=== PATIENT | male | born 1955 | race Caucasian/White ===

== ENCOUNTER 2017-05-07 10:30 | Observation (INO) | payer BC ==
[2017-05-07 13:58] LABS: Comments Flag Yes; Hematocrit 35 % (42-52); Hemoglobin 11.6 g/dl (14.0-18.0); Mean Corpuscular HGB Conc 33 g/dl (31-36); Mean Corpuscular Hemoglobin 32 pg (27-31); Mean Corpuscular Volume 97 fL (80-94); Mean Platelet Volume 8 um3 (7.4-10.4); Red Blood Count 3.61 10^6/ul (4.0-5.4); Red Cell Distribution Width 12 % (10.5-15)
[2017-05-07 13:59] LABS: White Blood Count 2.5 10^3/ul (3.5-10.8)
[2017-05-07] MEDS ORDERED: Acetaminophen TAB* 325 MG PO PRN (14:15)
[2017-05-07 14:45] LABS: BUN/Creatinine Ratio 6.8 (8-20); Calcium 7.9 mg/dL (8.6-10.3); EGFR African American 138.3 (>60); EGFR Non-African American 107.5 (>60); Globulin 2.9 g/dL (2-4); Potassium 4.1 mmol/L (3.5-5.0); Total Bilirubin 0.5 mg/dL (0.2-1.0); Total Protein 5.9 g/dL (6.4-8.9)
[2017-05-07] MEDS ORDERED: LORazepam TAB(*) 1 MG PO SCH (15:00)
[2017-05-07] MEDS: Albuterol/Ipratropium NEB.SOL* Albuterol 2.5 MG/Ipratropium 0.5 MG 3 ML INH SCH ×3 (15:44→23:35)
[2017-05-07 16:50] LABS: Troponin I 0.04 ng/mL (<0.04)
[2017-05-07] MEDS ORDERED: Nicotine Inhaler* 10 MG AMP INH PRN (17:01)
[2017-05-07] MEDS ORDERED: Mouth Piece, Nicotine* 1 EACH CARTRIDGE INH PRN (17:01)
[2017-05-07] MEDS: Nicotine PATCH 21 MG/24 HR* PATCH TRANSDERM SCH (17:18)
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
[2017-05-07] MEDS: Metoprolol Tartrate TAB* 50 mg PO SCH (20:15)
[2017-05-07] MEDS: Mometasone/Formoter 200/5 MDI INH SCH (20:21)
[2017-05-07] MEDS ORDERED: Nicotine Patch Removal NOTE FOLLOW UP SCH (21:00)
[2017-05-08] MEDS: Albuterol/Ipratropium NEB.SOL* Albuterol 2.5 MG/Ipratropium 0.5 MG 3 ML INH SCH ×7 (03:54→22:45)
[2017-05-08 05:46] LABS: Hematocrit 31 % (42-52); Hemoglobin 10.3 g/dl (14.0-18.0); Mean Corpuscular HGB Conc 34 g/dl (31-36); Mean Corpuscular Hemoglobin 33 pg (27-31); Mean Corpuscular Volume 97 fL (80-94); Mean Platelet Volume 9 um3 (7.4-10.4); Red Blood Count 3.13 10^6/ul (4.0-5.4); Red Cell Distribution Width 12 % (10.5-15)
[2017-05-08 05:47] LABS: Comments Flag Yes
[2017-05-08 05:48] LABS: White Blood Count 2.7 10^3/ul (3.5-10.8)
[2017-05-08 05:57] LABS: BUN/Creatinine Ratio 8.6 (8-20); Calcium 7.9 mg/dL (8.6-10.3); EGFR African American 147.4 (>60); EGFR Non-African American 114.6 (>60); Potassium 3.7 mmol/L (3.5-5.0)
[2017-05-08] MEDS: Nicotine PATCH 21 MG/24 HR* PATCH TRANSDERM SCH (07:32)
[2017-05-08] MEDS: Aspirin EC Low Dose* 81 MG TAB.EC PO SCH (07:36)
[2017-05-08] MEDS: Lisinopril TAB* 10 MG PO SCH (07:36)
[2017-05-08] MEDS: Atorvastatin* 10 MG TAB PO SCH (07:36)
[2017-05-08] MEDS: Tamsulosin CAP* 0.4 MG PO SCH (07:36)
[2017-05-08] MEDS: Omeprazole CAP* 20 MG PO SCH (07:36)
[2017-05-08] MEDS: Thiamine TAB* 100 MG TAB PO SCH (07:36)
[2017-05-08] MEDS: Metoprolol Tartrate TAB* 50 mg PO SCH ×2 (07:36→21:01)
[2017-05-08] MEDS: Folic Acid TAB* 1 MG PO SCH (07:36)
[2017-05-08] MEDS: Multivitamins/Minerals TAB PO SCH (07:36)
[2017-05-08] MEDS: Hydrocortisone 1% CREAM* 30 GM TUBE TOPICAL SCH (07:39)
[2017-05-08] MEDS: Mometasone/Formoter 200/5 MDI INH SCH ×2 (07:45→19:33)
[2017-05-08] MEDS ORDERED: Pneumococcal Vac Polyvalent* 0.5 ML VIAL IM ONE (09:00)
--- NOTE | 2017-05-08 11:54 | PN ---
Subjective Date of Service: 05/08/17 Interval History: Patient reports that he has been chest pain free overnight. No new complaints. He is very anxious and having trouble with his nicotine withdrawal. He denies cough, SOB, abd pain, n/v. Objective Active Medications: Acetaminophen (Tylenol Tab*) 650 mg PO Q4H PRN PRN Reason: PAIN Albuterol/Ipratropium (Duoneb (Albuterol 2.5 Mg/Ipratropium 0.5 Mg)) 1 neb INH [id number] AWAKE [facility] Last Admin: 05/08/17 07:43 Dose: 1 neb Aspirin (Aspirin Ec Low Dose*) 81 mg PO DAILY [facility] Last Admin: 05/08/17 07:36 Dose: 81 mg Atorvastatin Calcium (Lipitor*) 10 mg PO DAILY [facility] Last Admin: 05/08/17 07:36 Dose: 10 mg Device (Nicotine Mouth Piece*) 1 each INH .USE WITH NICOTROL PRN PRN Reason: CRAVING Last Admin: 05/07/17 17:18 Dose: 1 each Folic Acid (Folvite Tab*) 1 mg PO DAILY [facility] Last Admin: 05/08/17 07:36 Dose: 1 mg Hydrocortisone (Hytone Cream 1%*) 1 applic TOPICAL DAILY [facility] Last Admin: 05/08/17 07:39 Dose: 1 applic Lisinopril (Prinivil Tab*) 40 mg PO DAILY [facility] Last Admin: 05/08/17 07:36 Dose: 40 mg Lorazepam (Ativan Tab(*)) 0 - 6 mg PO .PER [facility] PROTOCOL [facility] PRN Reason: Protocol Metoprolol Tartrate (Lopressor Tab*) 50 mg PO BID [facility] Last Admin: 05/08/17 07:36 Dose: 50 mg Mometasone Furoate/Formoterol Fumar (Dulera 200/5 Mdi*) 2 puff INH BID [facility] PRN Reason: Protocol Last Admin: 05/08/17 07:45 Dose: 2 puff Multivitamins/Minerals (Theragran/Minerals Tab*) 1 tab PO DAILY [facility] Last Admin: 05/08/17 07:36 Dose: 1 tab Nicotine (Nicotine Inhaler*) 10 mg INH Q2H PRN PRN Reason: CRAVING Last Admin: 05/07/17 17:18 Dose: 10 mg Nicotine (Nicotine Patch 21 Mg/24 Hr*) 1 patch TRANSDERM DAILY [facility] Last Admin: 05/08/17 07:32 Dose: 1 patch Omeprazole (Prilosec Cap*) 20 mg PO DAILY@0730 [facility] Last Admin: 05/08/17 07:36 Dose: 20 mg Pharmacy Profile Note (Nicotine Patch Removal Note*) 1 note FOLLOW UP 2100 [facility] Last Admin: 05/07/17 22:06 Dose: 1 note Tamsulosin HCl (Flomax Cap*) 0.4 mg PO DAILY [facility] Last Admin: 05/08/17 07:36 Dose: 0.4 mg Thiamine HCl (Vitamin B-1 Tab*) 100 mg PO DAILY [facility] Last Admin: 05/08/17 07:36 Dose: 100 mg Vital Signs: Temp Pulse Resp BP Pulse Ox 97.5 F 80 16 137/64 98 05/08/17 07:26 05/08/17 07:46 05/08/17 07:26 05/08/17 07:26 05/08/17 07:46 Oxygen Devices in Use Now: None Appearance: Slightly anxious, but otherwise well appearing gentleman in NAD Respiratory: Symmetrical Chest Expansion and Respiratory Effort, Clear to Auscultation Cardiovascular: NL Sounds; No Murmurs; No JVD, RRR Abdominal: NL Sounds; No Tenderness; No Distention Extremities: No Edema Skin: No Rash or Ulcers Neurological: Alert and Oriented x 3 Result Diagrams: 05/08/17 05:28 05/08/17 05:28 EKG Data: NSR, no ischemic changes Assess/Plan/Problems-Billing Assessment: This is a 61 yo gentleman with HTN, HLD, COPD and >100 pk yr smoking history with a positive family history of premature coronary disease who was transferred from [facility] with complaints of CP and mildly elevated troponin. - Patient Problems (1) Chest pain Comment: No evidence of ACS, but multiple risk factors for coronary disease Trop 0.04 x 4 No EKG changes and pt has been asx for >24 hours Echo and stress testing pending Cont ASA, BB and statin (2) Hypertension Comment: Mild HTN Cont home antihypertensives (3) Hyperlipidemia Comment: Cont statin (4) Tobacco dependence Comment: Nicotine patch and inhaler (5) COPD (chronic obstructive pulmonary disease) Comment: No acute exacerbation, cont home inhaled medications (6) Full code status (7) DVT prophylaxis Status and Disposition: Observation. Pending echo and stress test with anticipated dc tomorrow.
[2017-05-08 12:20] LABS: HDL Cholesterol 38.3 mg/dL
--- NOTE | 2017-05-08 12:52 | ECHO ---
Patient: ZAKI TIRADO [facility] Rec#: [id number] : 1955 Date: 05/08/2017 Age: 61y Height: 180.34 cm / 71.0 in Weight: 72.57 kg / 159.9 lbs Sex: M BSA: 1.92 Room#: 440 Admit Date#: 05/07/2017 Type: Inpatient Referring: Hieu Simon Reading: Andrew Kennedy MD Precision Assembler: Viri Zheng DANNY CC: Tess Light, DO Transthoracic Echocardiogram Indication: CP BP: 137/64 HR: 70 Rhythm: NSR Findings History: HTN,HLD,COPD,GERD. Technical Comments: The study quality is good. Left Ventricle: The left ventricular chamber size is normal. Global left ventricular wall motion and contractility are within normal limits. There is normal left ventricular systolic function. The estimated ejection fraction is 55-60%. The assessment of diastolic function is non-diagnostic. Left Atrium: The left atrial chamber size is normal. Right Ventricle: The right ventricular cavity size is normal. The right ventricular global systolic function is normal. Right Atrium: The right atrial cavity size is normal. Aortic Valve: The aortic valve is trileaflet. There is no evidence of aortic regurgitation. There is no evidence of aortic stenosis. Mitral Valve: The mitral valve leaflets are mildly thickened. There is trace to mild mitral regurgitation. There is no evidence of mitral stenosis. Tricuspid Valve: The tricuspid valve leaflets are normal. There is no evidence of tricuspid valve regurgitation. Unable to estimate the right ventricular systolic pressure. There is no tricuspid stenosis. Pulmonic Valve: The pulmonic valve appears normal. There is no evidence of pulmonic regurgitation. There is no pulmonic stenosis. Pericardium: A pericardial fat pad is visualized. Aorta: There is no dilatation of the ascending aorta. There is no dilatation of the aortic arch. There is no dilation of the aortic root. Pulmonary Artery: The main pulmonary artery appears normal. Venous: The venous system is not well visualized. Summary: There was not any prior study for comparison. Conclusions Global left ventricular wall motion and contractility are within normal limits. The estimated ejection fraction is 55-60%. The assessment of diastolic function is non-diagnostic. There is trace to mild mitral regurgitation. Unable to estimate the right ventricular systolic pressure. Measurements Name Value Normal Range RVIDd (AP) 2D 2.5 cm (0.9 - 2.6) RVDdMajor (2D) 4.4 cm (2.2 - 4.4) RAd ISD 4CH 4.4 cm (3.4 - 4.9) RA (A4C)W 3.5 cm (2.9 - 4.6) IVSd (2D) 0.9 cm (0.6 - 1) LVPWd (2D) 0.7 cm (0.6 - 1) LVIDd (2D) 4.7 cm (3.6 - 5.4) LVIDs (2D) 3.4 cm - LV FS (2D) 28 % (25 - 45) Aortic Annulus 2 cm (1.4 - 2.6) Ao root diameter (2D) 3.2 cm (2.1 - 3.5) Ascending Ao 3.1 cm (2.1 - 3.4) Aortic arch 2.4 cm (1.8 - 3.4) LA dimension (AP) 2D 3.8 cm (2.3 - 3.8) LAd ISD 4CH 4.5 cm (2.9 - 5.3) LA ISD 4CH W 3.8 cm (2.5 - 4.5) Name Value Normal Range LA ESV SP 4CH (A/L) 40 ml - LA ESV SP 2CH (A/L) 35 ml - LA ESV BP (A/L) 38 ml - LA ESV BP (A/L) index 19.77 ml/m2 - LA ESV SP 4CH (MOD) 36 ml - LA ESV SP 2CH (MOD) 32 ml - Name Value Normal Range MV E-wave Vmax 0.8 m/sec - MV deceleration time 192 msec - MV A-wave Vmax 0.8 m/sec - MV E:A ratio 0.93 ratio - LV septal e' Vmax 0.1 m/sec - LV lateral e' Vmax 0.1 m/sec - LV E:e' septal ratio 8 ratio - LV E:e' lateral ratio 8 ratio - Name Value Normal Range AV Vmax 1 m/sec - AV VTI 25.4 cm - AV peak gradient 2.55 mmHg - AV mean gradient 1.45 mmHg - LVOT Vmax 0.8 m/sec - LVOT VTI 21 cm - LVOT peak gradient 2.55 mmHg - LVOT mean gradient 1.45 mmHg - Name Value Normal Range PV Vmax 0.9 m/sec - PV peak gradient 3.44 mmHg -
[2017-05-09] MEDS: Albuterol/Ipratropium NEB.SOL* Albuterol 2.5 MG/Ipratropium 0.5 MG 3 ML INH SCH ×2 (02:47→07:39)
[2017-05-09] MEDS: Mometasone/Formoter 200/5 MDI INH SCH (07:40)
[2017-05-09] MEDS ORDERED: Albuterol/Ipratropium NEB.SOL* Albuterol 2.5 MG/Ipratropium 0.5 MG 3 ML INH PRN (09:51)
[2017-05-09] MEDS: Nicotine PATCH 21 MG/24 HR* PATCH TRANSDERM SCH (10:12)
[2017-05-09] MEDS: Metoprolol Tartrate TAB* 50 mg PO SCH (10:14)
[2017-05-09] MEDS: Folic Acid TAB* 1 MG PO SCH (10:14)
[2017-05-09] MEDS: Omeprazole CAP* 20 MG PO SCH (10:14)
[2017-05-09] MEDS: Tamsulosin CAP* 0.4 MG PO SCH (10:14)
[2017-05-09] MEDS: Hydrocortisone 1% CREAM* 30 GM TUBE TOPICAL SCH (10:14)
[2017-05-09] MEDS: Lisinopril TAB* 10 MG PO SCH (10:14)
[2017-05-09] MEDS: Aspirin EC Low Dose* 81 MG TAB.EC PO SCH (10:14)
[2017-05-09] MEDS: Thiamine TAB* 100 MG TAB PO SCH (10:14)
[2017-05-09] MEDS: Multivitamins/Minerals TAB PO SCH (10:14)
[2017-05-09] MEDS: Atorvastatin* 10 MG TAB PO SCH (10:17)
--- NOTE | 2017-05-09 11:01 | RAD ---
Edited for charges. INDICATION: Chest pain. COMPARISON: There are no prior studies available for comparison. Technique: A single day myocardial perfusion stress study was performed. Initially a resting study was performed. The patient was given an intravenous injection of 10.7 mCi of technetium 99m tetrofosmin and and the heart was imaged in multiple projections. The patient returned later in the day and under the direction of Dr. Shetty, the patient was exercised to a peak heart rate of 144 beats per minute which was 92% of the maximum predicted heart rate. Subsequently the patient was given intravenous injection of 25.4 mCi of technetium 99m tetrofosmin and the heart was imaged in multiple projections. Images were reconstructed in the axial, sagittal and coronal planes and in a 3- D format. FINDINGS: There appears to be normal wall motion and myocardial thickening. The left ventricular ejection fraction was calculated to be 66%. Review of the images demonstrates decreased activity in the inferior wall on both the post exercise and resting images which is no longer present on the attenuation corrected images and therefore most consistent with attenuation artifact. There is otherwise normal distribution of radiopharmaceutical. On the CT attenuation correction images there is a nodular density present in the right lower lobe which is not well-defined although measures approximately 1.5 cm in size. Recommend a dedicated CT of the chest with contrast for further evaluation. The results of this examination were called to Dr. Chakraborty. IMPRESSION: 1. NO EVIDENCE FOR INFARCT OR ISCHEMIA. 2. PROBABLE RIGHT LOWER LOBE PULMONARY NODULE RECOMMEND A DEDICATED CONTRAST- ENHANCED CT OF THE CHEST FOR FURTHER EVALUATION. ASSESSMENT: Low risk. Based on imaging criteria from ACC/AHA 2002 Guideline Update for the Management of Patients With Chronic Stable Angina Table 23. Noninvasive Risk Stratification. MTDD
[2017-05-09] MEDS ORDERED: Iohexol 300* (CONTRAST) 10 ML SDV IV ONE (11:16)
[2017-05-09 11:42] VITALS: BP 135/63
--- NOTE | 2017-05-09 12:05 | RAD ---
Indication: Evaluate for pulmonary nodule. Contrast: Administered 80.0 ml of OMNIPAQUE 300 mg/ml CT of the chest was performed without IV contrast demonstration. Coronal and sagittal reconstructed images were obtained. Inferior thyroid lobes are unremarkable. There is no mediastinal or hilar adenopathy noted. Heart is of normal size and configuration. The trachea and major bronchi appear patent. Emphysematous changes are noted in the lung yi. A nodule is noted in the posterior medial right lower lobe which is lobulated and measures up to 10 mm. Correlation with PET scan or tissue sampling is suggested. No pleural fluid is identified. No calcifications are noted. The left lung field is clear. The thoracic spine demonstrates L1 sclerotic lesion which may represent a bone island. Sclerotic lesion at T7 superior endplate. IMPRESSION: LOBULATED NODULE IN THE POSTERIOR MEDIAL RIGHT LOWER LOBE MEASURING UP TO 10 MM. PET SCAN OR TISSUE SAMPLING IS SUGGESTED FOR FURTHER EVALUATION. NO PRIOR STUDY IS AVAILABLE FOR COMPARISON.
--- NOTE | 2017-05-10 01:25 | DS ---
CC: Dr. Tess Light* DISCHARGE SUMMARY: DATE OF ADMISSION: 05/07/17 DATE OF DISCHARGE: 05/09/17 PRIMARY CARE PROVIDER: Dr. Tess Light. DISCHARGING PROVIDER: CARLOS Lama SUPERVISING PHYSICIAN: Aranza Reyez MD* (dictated by CARLOS Lama) PRIMARY DISCHARGE DIAGNOSES: 1. Chest pain - normal echocardiogram and nuclear stress testing. 2. Incidental pulmonary nodule finding, approximately 10 mm in diameter, which requires further followup including PET scan or possible biopsy. SECONDARY DISCHARGE DIAGNOSES: 1. Chronic obstructive pulmonary disease without evidence of acute exacerbation. 2. Tobacco dependence. 3. Hypertension. Please note that the patient was mildly hypertensive during his hospital stay, but was quite anxious being without cigarettes for a prolonged period of time, which may have contributed to his hypertension. For this reason, no changes were made to his antihypertensive medications. 4. Hyperlipidemia. 5. Pancytopenia - unsure of acuity, but it seems may be related to his history of significant alcohol intake. 6. Psoriasis. DISCHARGE MEDICATIONS: 1. Hydrocortisone cream 0.1% cream, apply topically daily. 2. Albuterol inhaler 2 puffs inhaled q.4 hours as needed for shortness of breath. 3. DuoNebs 1 neb inhaled q.4 hours as needed for shortness of breath. 4. Symbicort 160/4.5 two puffs inhaled twice daily. 5. Lisinopril 40 mg p.o. daily. 6. Metoprolol tartrate 50 mg p.o. twice daily. 7. Omeprazole 20 mg p.o. daily. 8. Simvastatin 20 mg p.o. daily. 9. Tamsulosin 0.4 mg p.o. daily. MEDICATION CHANGES: None. HOSPITAL IMAGIN. Nuclear stress testing is low risk study without evidence of ischemia or infarct. 2. CT of the chest shows a 10 mm lobulated nodule in the posterior medial right lower lobe. 3. Transthoracic echocardiogram shows normal appearing left ventricle with EF of 55% to 60%. 4. EKG shows sinus rhythm without ischemic changes. HOSPITAL COURSE: This is a 61-year-old gentleman with hypertension, hyperlipidemia, COPD, and a significant smoking history as well as psoriasis who was transferred from [facility] with complaints of chest pain. Patient described a pressure sensation with associated nausea and some left arm pain that lasted for several hours before he reached [facility]. His initial troponin was 0.033 and on repeat was 0.038. The patient was asymptomatic since reaching [place]. He was subsequently transferred to our facility for further evaluation. Labs here demonstrated some mild pancytopenia as well as hyponatremia and troponin of 0.04. EKG showed a sinus rhythm without ischemic changes. His troponin remained at 0.04 and he remained chest pain free. He underwent echocardiogram, which showed no wall motion abnormalities or significant compromise of the left ventricular ejection fraction. He subsequently underwent nuclear stress testing which showed no evidence of ischemia or infarct. There was an incidental pulmonary nodule discovered, however. The patient underwent CT of the chest for further evaluation of the pulmonary nodule , which measured approximately 10 mm in diameter. The patient reports that he believes he has a known history of a pulmonary nodule, but there are no prior CT of the chest available for comparison in our hospital system. Suggested to the patient that based on the size, biopsy is recommended, but the patient received a copy of his CT scan on a disc to bring to his primary care provider for comparison to prior imaging to evaluate any change in size. DISCHARGE PLAN AND DISPOSITION: The patient is being discharged to home where he lives with his . No changes were made to his home medications. He requires followup with his primary care provider within 1 week. Further followup regarding incidental finding of pulmonary nodule is recommended as described above. Based on size, biopsy would be the recommended modality. CARLOS LAMA [id number]/[facility] #: [id number] [place]
== END 2017-05-09 14:02 | disposition home or self-care (01) ==
LOC: INTOOBSV 12:18 → MEDTELE 12:18
PROVIDERS: ADMIT Internal Medicine; ATTEND Hospitalist
DX: R07.9 Chest pain, unspecified (principal); R91.1 Solitary pulmonary nodule; J44.9 Chronic obstructive pulmonary disease, unspecified; F17.210 Nicotine dependence, cigarettes, uncomplicated; I10 Essential (primary) hypertension; E78.5 Hyperlipidemia, unspecified; K21.9 Gastro-esophageal reflux disease without esophagitis; D61.818 Other pancytopenia; L40.9 Psoriasis, unspecified; F10.20 Alcohol dependence, uncomplicated; R94.31 Abnormal electrocardiogram [ECG] [EKG]; Z79.899 Other long term (current) drug therapy; Z23 Encounter for immunization
CPT/HCPCS: 36415; 71260; 78452; 80048; 80053; 80061; 84484; 85025; 85610; 90471; 90732; 93005; 93017; 93306; 94640; 94760; A9270-GY; A9502; G0009; G0378; Q9967

== ENCOUNTER 2018-05-31 08:05 | Day surgery (SDC) | payer BC ==
[~2018-05-31 08:05] MED LIST: Buffered Lidocaine 0.9% SYRIN* 5 ML/SYR SYRINGE INTRADERM ONE; Famotidine IV* 10 MG/ML 2 ML (20 mg) IV ONE; Metoclopramide TAB* 10 MG PO ONE
[2018-05-31] MEDS ORDERED: Famotidine IV* 10 MG/ML 2 ML (20 mg) ONE (08:08)
[2018-05-31] MEDS ORDERED: Metoclopramide TAB* 10 MG ONE (08:08)
[2018-05-31] MEDS ORDERED: fentaNYL* 50 MCG/ML 2 ML VIAL (100 MCG VIAL) ONE ×4 (09:04→12:39)
[2018-05-31] MEDS ORDERED: Propofol* 10 MG/ML 20 ML BTL IV PUSH ONE ×2 (09:04→11:36)
[2018-05-31] MEDS ORDERED: Midazolam* 1 MG/ML 5 ML VIAL (5 MG) ONE (09:04)
[2018-05-31] MEDS ORDERED: Cisatracurium* 2 MG/ML MDV 5 ML ONE (09:04)
[2018-05-31] MEDS ORDERED: Dexamethasone IV* 4 MG/ML 1 ML (4 MG) ONE (09:04)
[2018-05-31] MEDS ORDERED: Ondansetron INJ* 2 MG/ML VIAL ONE (09:04)
[2018-05-31] MEDS ORDERED: Lidocaine 2% PF * 5 ML VIAL ONE (09:04)
[2018-05-31] MEDS ORDERED: Lidocain 1% EPI 1:100,000 * 30 ML MDV ONE (10:03)
[2018-05-31] MEDS ORDERED: Ciprofloxacin 0.3% OPTH.SOL* 2.5 ML BTL ONE (10:03)
[2018-05-31] MEDS ORDERED: Gelfoam 12-7 ADSORBABL SPONGE* 1 EA SPONGE ONE ×2 (10:03→10:55)
[2018-05-31] MEDS ORDERED: EPINEPHRINE 1 MG/ML 1 ML VIAL ONE (10:03)
[2018-05-31] MEDS ORDERED: EPHEDrine (Pressors)* 50 MG/ML VIAL ONE (10:53)
[2018-05-31] MEDS ORDERED: Gelfoam Sponge SIZE 100* SPONGE ONE (10:56)
[2018-05-31] MEDS ORDERED: Levalbuterol 0.63MG/3ML NEB* UNIT OF USE INH PRN (11:32)
[2018-05-31] MEDS ORDERED: fentaNYL* 50 MCG/ML 2 ML VIAL (100 MCG VIAL) IV PRN (11:32)
[2018-05-31] MEDS ORDERED: Ondansetron INJ* 2 MG/ML VIAL IV PRN (11:32)
[2018-05-31] MEDS ORDERED: Naloxone* 0.4 MG/ML 1 ML VIAL IV PRN (11:32)
[2018-05-31] MEDS ORDERED: oxyCODONE/Acetamin 5/325 MG* TAB PO PRN (11:32)
[2018-05-31] MEDS ORDERED: Ciproflox/Dexameth OTIC.SUSP* 7.5 ML BTL OTIC ONE (12:30)
[2018-05-31 14:41] VITALS: BP 181/85
--- NOTE | 2018-06-01 01:46 | OP ---
DATE OF OPERATION: 05/31/18 [facility] DATE OF : 55 ATTENDING SURGEON: Favian Mari MD OPERATIONAL RISK MANAGER: None. ANESTHESIA: General. PRE-OP DIAGNOSIS: Chronic otitis media on the left with perforation. POST-OP DIAGNOSIS: Chronic otitis media on the left with perforation. OPERATIVE PROCEDURE: Left tympanomastoidectomy. ESTIMATED BLOOD LOSS: Less than 50 cc. INDICATIONS: This is a 62-year-old male who has had a chronic draining left ear for several years. He had severe mixed hearing loss. The chronic infection of the left year has made it very difficult for him to use his hearing aid. The decision was made to proceed with left tympanomastoidectomy to try to eradicate disease and seal off the ear in hopes of creating a dry safe ear which can then be more easily amplified. DESCRIPTION OF PROCEDURE: On 05/31/18 the patient was brought to the operating room, general anesthesia was induced and then oral endotracheal tube was placed. A NIM facial nerve monitor was then applied. The postauricular sulcus was then marked and proximally 4 cc of 1% lidocaine with epinephrine were infiltrated. The ear was then prepped with Betadine and draped sterilely. A time-out was performed. The left external auditory canal was suctioned free off wax and squamous debris. The perforation was inspected. There was some purulent discharge coming from the middle ear and inflammation in the middle ear mucosa. A 4 quadrant canal injection was then made. A sickle knife was used to make radial cuts at 12 o'clock and 6 o'clock. These were then joined with a curved angle match-e-be-nash-she-wish band blade, epi-soaked gel foam was then placed into the ear canal. Attention was then turned postauricularly. A 15 blade was used to incise postauricular skin. The Bovie was then used for hemostasis. The temporalis fascia was then exposed. A 1.5 x 1.5 cm piece of temporalis facia was harvested, placed in a press and set aside. Incisions were then made through the mastoid periosteum, one horizontally along the temporal line and the other a limb dropped perpendicularly towards the mastoid tip. The mastoid periosteum was then elevated with a periosteal elevator. Elevation of the lateral ear canal skin was then accomplished with a combination of a freer and round knife. Once the end oral incisions were encountered the gel foam was removed. A 0.25 inch pen nadir was then placed through the ear canal, brought up postauricularly with a Weitlander to retract the ear forward. The microscope was brought back into the field. The tympanomeatal flap was elevated. There was essentially a marginal perforation posteriorly which was relatively large, I would estimate around 40% of the area of the drum. The chorda tympani nerve was identified and preserved. There appeared to be inflamed middle ear mucosa covering the stapes superstructure. The lenticular process of incus was gone. The middle ear cleft was significantly contracted with the malleus practically touching the promontory. With the tympanomeatal flap elevated attention was then turned to the mastoid. A series of cutting and judit burrs were used to perform a simple mastoidectomy. The tegmen and sigmoid sinus were used as landmarks, as was the posterior canal wall to facilitate dissection. Diseased mucosa was striped down of the mastoid air cells and antrum as well. The ear was then copiously irrigated. A piece of cartilage was then harvested from the posterior aspect of the santos. It was determined that the best way to reconstruct both the drum and the ossicular chain would be to place a cartilage graft underneath the tympanic membrane remnant and the malleus which would then contact the stapes capitulum. The graft was then trimmed to a thickness of 0.4 mm utilizing a cartilage cutter. The previously harvested temporalis fascia had graft having been pressed and dried was then cut to size. It was laid on top of the cartilage, but deep to the tympanic membrane remnant. Some Ciprodex soaked Gelfoam had been placed into the middle ear cleft. The tympanomeatal flap was then laid back down. The edges of the fascia graft were tucked underneath the tympanic membrane remnant anteriorly and inferiorly. Additional gel foam was then placed lateral to the graft in the tympanic membrane remnant. The mastoid cavity was then packed with ciprofloxacin soaked gel foam. The mastoid periosteum was then closed with 4-0 Vicryl. Skin was also closed with 4-0 Vicryl using interrupted buried stitches. The ear canal was then inspected again under the microscope. Edges of the tympanomeatal flap and ear canal skin were laid flat to prevent cholesteatoma betty formation. The remainder of the ear canal was packed with supra soaked gel foam. Bacitracin ointment was then placed on the postauricular incision and a glass cut dressing was applied. The facial nerve monitor was removed and at no point during the case did the monitor alarm. The patient was then delivered to the PACU in stable condition. [id number] #: [id number] MTDD
== END 2018-05-31 15:03 | disposition home or self-care (01) ==
LOC: OR 08:05
PROVIDERS: ATTEND Otolaryngology
DX: H66.3X2 Other chronic suppurative otitis media, left ear (principal); H72.92 Unspecified perforation of tympanic membrane, left ear; H90.72 Mixed conductive and sensorineural hearing loss, unilateral, left ear, with unrestricted hearing on the contralateral side; H92.12 Otorrhea, left ear; I10 Essential (primary) hypertension; K21.9 Gastro-esophageal reflux disease without esophagitis; E78.00 Pure hypercholesterolemia, unspecified; Z72.0 Tobacco use; J44.9 Chronic obstructive pulmonary disease, unspecified; D64.9 Anemia, unspecified
CPT/HCPCS: A9270-GY; J1100; J2250; J2405; J2704; J3010